=== PATIENT | male | born 1965 | race Caucasian/White ===

== ENCOUNTER 2017-12-28 03:34 | Inpatient (IN) | payer SELFPAY ==
[~2017-12-28] VITALS: Ht 182.9 cm; Wt 82.9 kg
[2017-12-28] VITALS (11 sets, daily range): BP systolic 95–144; BP diastolic 60–79; PULSE 101–128; TEMP 97.9–103.2
[2017-12-28 04:24] LABS: BASO # 0.1 (0.0-0.2); BASO % 0.4 % (0.0-2.0); EOS % 0.1 % (0-4.0); GRAN # 10.3 (1.4-6.5); GRAN % 84.9 % (42.2-75.2); HEMOGLOBIN 12.1 g/dl (13.5-18.0); LYMPH # 0.7 (1.2-3.4); LYMPH % 5.8 % (20.0-51.0); MEAN CELL VOLUME 79 fl (80.0-100.0); MEAN CORPUSCULAR HEMOGLOBIN 28 pg (27.0-31.0); MEAN CORPUSCULAR HGB CONC 35 g/dl (33.0-37.0); MEAN PLATELET VOLUME 10.3 fl (7.4-10.4); MONO % 8.1 % (1.7-9.3); PLATELET COUNT 214 K/mm3 (130-400); RED BLOOD COUNT 4.37 M/mm3 (4.20-5.60); REDCELL DISTRIBUTION WIDTH-CV 13.1 % (11.5-14.5)
[2017-12-28 04:25] LABS: HEMATOCRIT 34.6 % (42.0-52.0)
[2017-12-28 04:31] LABS: ACETONE,SERUM NEGATIVE
[2017-12-28 04:37] LABS: ALANINE AMINOTRANSFERASE 33 U/L (21-72); ALBUMIN 3.1 gm/dL (3.5-5.0); ALKALINE PHOSPHATASE 110 U/L (50-136); ANION GAP 8 mmol/L (7-16); AST,SGOT 18 U/L (15-37); BILIRUBIN,TOTAL 0.6 mg/dL (0.0-1.0); BLOOD UREA NITROGEN 14 mg/dL (9-20); CALCIUM 8.2 mg/dL (8.4-10.2); CARBON DIOXIDE 26 mmol/L (22-30); GLUCOSE 274 mg/dL (74-106); POTASSIUM 4.3 mmol/L (3.4-5.0); SODIUM 121 mmol/L (137-145); TOTAL PROTEIN 6.9 gm/dL (6.4-8.2)
[2017-12-28 04:44] LABS: ERYTHROCYTE SEDIMENTATION RATE 40 mm/hr (0-30)
[2017-12-28 04:46] LABS: CHLORIDE 87 mmol/L (98-107)
[2017-12-28 04:49] LABS: C-REACTIVE PROTEIN 15.4 mg/dL (0.0-0.9)
[2017-12-28 04:49] LABS: COLLECTION METHOD CLEAN CATCH
[2017-12-28 04:51] LABS: HIV 1/2 Antibodies Non-Reactive; HIV-1p24 Antigen Non-Reactive
[2017-12-28 04:55] LABS: PH 6 (5-8); SQUAMOUS EPITHELIAL None Seen /hpf; URINE APPEARANCE Clear; URINE BACTERIA None Seen /hpf; URINE BILIRUBIN Negative (NEGATIVE); URINE BLOOD 1+ (NEGATIVE); URINE COLOR Yellow; URINE GLUCOSE 3+ (NEGATIVE); URINE KETONE Negative (NEGATIVE); URINE LEUKOCYTE ESTERASE Negative (NEGATIVE); URINE NITRATE Negative (NEGATIVE); URINE PROTEIN(semi-quant) Negative (NEGATIVE); URINE RBC 0-2 /hpf
[2017-12-28 05:06] LABS: TRICYCLIC ANTIDEPRESS URINE NEGATIVE
[2017-12-28 18:23] LABS: CALCIUM 7.9 mg/dL (8.4-10.2); CREATININE, serum 0.9 mg/dL (0.66-1.25); MAGNESIUM 1.9 mg/dL (1.6-2.3); POTASSIUM 4.3 mmol/L (3.4-5.0)
[2017-12-29 00:03] VITALS: BP 102/63; PULSE 110
[2017-12-29 04:30] VITALS: BP 106/61; PULSE 102; TEMP 98.5
[2017-12-29 07:26] LABS: BASO % 0.3 % (0.0-2.0); EOS % 0.1 % (0-4.0); GRAN # 7.4 (1.4-6.5); GRAN % 79.8 % (42.2-75.2); HEMOGLOBIN 10.9 g/dl (13.5-18.0); LYMPH # 0.9 (1.2-3.4); LYMPH % 9.9 % (20.0-51.0); MEAN CELL VOLUME 81 fl (80.0-100.0); MEAN CORPUSCULAR HEMOGLOBIN 27 pg (27.0-31.0); MEAN CORPUSCULAR HGB CONC 33 g/dl (33.0-37.0); MEAN PLATELET VOLUME 10.1 fl (7.4-10.4); MONO # 0.8 (0.1-0.6); MONO % 8.7 % (1.7-9.3); PLATELET COUNT 185 K/mm3 (130-400); RED BLOOD COUNT 4.01 M/mm3 (4.20-5.60); REDCELL DISTRIBUTION WIDTH-CV 13.5 % (11.5-14.5)
[2017-12-29 07:28] LABS: HEMATOCRIT 32.6 % (42.0-52.0)
[2017-12-29 07:40] LABS: CALCIUM 7.4 mg/dL (8.4-10.2); CREATININE, serum 0.95 mg/dL (0.66-1.25); POTASSIUM 3.9 mmol/L (3.4-5.0)
[2017-12-29 08:00] VITALS: BP 110/74; PULSE 91; TEMP 98.6
[2017-12-29 11:43] VITALS: BP 104/66; PULSE 97; TEMP 98.5
[2017-12-29 19:57] VITALS: BP 113/65; PULSE 102; TEMP 98.8
[2017-12-30] VITALS (10 sets, daily range): BP systolic 98–118; BP diastolic 61–72; PULSE 75–97; TEMP 98–98.7
[2017-12-31] VITALS (12 sets, daily range): BP systolic 94–119; BP diastolic 53–76; PULSE 80–89; TEMP 97.5–98.8
[2018-01-01] VITALS (13 sets, daily range): BP systolic 100–124; BP diastolic 61–82; PULSE 71–92; TEMP 97.4–98.6
[2018-01-02 02:31] VITALS: BP 110/64; PULSE 80; TEMP 97.6
[2018-01-02 04:08] VITALS: BP 104/59; PULSE 88; TEMP 98.2
[2018-01-02 05:47] VITALS: BP 108/67; PULSE 83; TEMP 98.2
[2018-01-02] MEDS ORDERED: CUBICIN 500MG500 MG IV (08:06)
[2018-01-02 08:35] VITALS: BP 116/66; PULSE 72; TEMP 97.6
[2018-01-02] MEDS ORDERED: GLUCOPHAGE500 MG/TAB PO (08:53)
[2018-01-02 10:08] VITALS: BP 114/81; PULSE 84; TEMP 98.5
[2018-01-02 12:17] VITALS: BP 113/77; PULSE 92; TEMP 98.5
[2018-01-02] MEDS ORDERED: VANCOCIN HCL1 GM IV (13:16)
[2018-01-03] MEDS ORDERED: MULTI VITAMINS1 TAB PO (09:20)
== END 2018-01-02 15:35 | disposition home or self-care (01) | DRG 854 ==
LOC: COL.ER 03:34 → SURG 06:28
PROVIDERS: Emergency Medicine; Internal Medicine; Physician Assistant; Surgery
PROC: 0H99X0Z Drainage of Perineum Skin with Drainage Device, External Approach (ICD-10-PCS; 2017-12-28)
PROC: 0H9AXZZ Drainage of Inguinal Skin, External Approach (ICD-10-PCS; 2017-12-28)
PROC: 0H9HXZZ Drainage of Right Upper Leg Skin, External Approach (ICD-10-PCS; principal; 2017-12-28 19:45)
DX: A41.02 Sepsis due to Methicillin resistant Staphylococcus aureus (principal); L03.115 Cellulitis of right lower limb; L03.314 Cellulitis of groin; K61.1 Rectal abscess; E87.1 Hypo-osmolality and hyponatremia; F15.10 Other stimulant abuse, uncomplicated; E11.65 Type 2 diabetes mellitus with hyperglycemia
CPT/HCPCS: 99222-AI; 99233-AI; A4244; C1751; J0690; J1815; J2060; J2270; J2405; J2543; J2704; J3010; J3370; J7030; J7050; Q9967

== ENCOUNTER 2018-01-03 16:26 | Outpatient (RCR) | payer SELFPAY ==
[~2018-01-03] VITALS: Ht 182.9 cm; Wt 82.0 kg
[2018-01-03 08:00] VITALS: BP 131/99; PULSE 107; TEMP 98.1
[~2018-01-03 16:26] MED LIST: CUBICIN 500MG500 MG IV; GLUCOPHAGE500 MG/TAB PO; MULTI VITAMINS1 TAB PO; VANCOCIN HCL1 GM IV
[2018-01-04 06:58] VITALS: BP 114/78; PULSE 95; TEMP 98.1
[2018-01-04 18:27] VITALS: BP 109/69; PULSE 100; TEMP 98.4
[2018-01-05 07:23] VITALS: BP 118/74; PULSE 99; TEMP 98.1
[2018-01-05 17:31] VITALS: BP 128/70; PULSE 101; TEMP 98.3
[2018-01-06 07:40] VITALS: BP 130/83; PULSE 89; TEMP 98.1
[2018-01-07 08:11] VITALS: BP 125/73; PULSE 73; TEMP 98
[2018-01-08 07:36] VITALS: BP 118/70; PULSE 91; TEMP 98.7
[2018-01-08 18:06] VITALS: BP 118/76; PULSE 100; TEMP 97.9
[2018-01-09 07:26] VITALS: BP 115/86; PULSE 89; TEMP 97.9
[2018-01-09 18:07] VITALS: BP 108/65; PULSE 99; TEMP 97.8
[2018-01-10 07:33] VITALS: BP 121/77; PULSE 98; TEMP 98.3
[2018-01-10 18:09] VITALS: BP 125/77; PULSE 105; TEMP 98.2
[2018-01-11 08:58] VITALS: BP 117/74; PULSE 101; TEMP 97.7
[2018-01-11 17:51] VITALS: BP 130/80; PULSE 102; TEMP 98
[2018-01-12 07:33] VITALS: BP 121/70; PULSE 97; TEMP 97.6
[2018-01-12 18:12] VITALS: BP 120/70; PULSE 70; TEMP 97.4
== END 2018-01-12 19:30 | disposition home health service (06) ==
LOC: COL.ER 16:32 → EUO 16:32
DX: A41.02 Sepsis due to Methicillin resistant Staphylococcus aureus (principal); L02.91 Cutaneous abscess, unspecified; E11.65 Type 2 diabetes mellitus with hyperglycemia; E87.1 Hypo-osmolality and hyponatremia; E87.8 Other disorders of electrolyte and fluid balance, not elsewhere classified; F15.10 Other stimulant abuse, uncomplicated
CPT/HCPCS: J3370; J7040

== ENCOUNTER 2020-09-06 04:37 | Observation (INO) | payer SELFPAY ==
[~2020-09-06] VITALS: Ht 182.9 cm; Wt 79.5 kg
[2020-09-06 05:37] LABS: BASO % 0.5 % (0.0-2.0); EOS # 0.3 (0.0-0.7); EOS % 3.8 % (0-4.0); GRAN # 5.9 (1.4-6.5); GRAN % 70.1 % (42.2-75.2); HEMATOCRIT 45.9 % (42.0-52.0); HEMOGLOBIN 15.2 g/dl (13.5-18.0); LYMPH # 1.6 (1.2-3.4); MEAN CELL VOLUME 84 fl (80.0-100.0); MEAN CORPUSCULAR HEMOGLOBIN 28 pg (27.0-31.0); MEAN CORPUSCULAR HGB CONC 33 g/dl (33.0-37.0); MEAN PLATELET VOLUME 10.8 fl (7.4-10.4); MONO # 0.5 (0.1-0.6); MONO % 6.4 % (1.7-9.3); PLATELET COUNT 252 K/mm3 (130-400); RED BLOOD COUNT 5.44 M/mm3 (4.20-5.60); REDCELL DISTRIBUTION WIDTH-CV 14.3 % (11.5-14.5)
[2020-09-06 05:54] LABS: ALBUMIN 4.2 gm/dL (3.5-5.0); BILIRUBIN,TOTAL 0.6 mg/dL (0.0-1.0); CALCIUM 8.9 mg/dL (8.4-10.2); CREATININE, serum 0.7 (0.66-1.25); POTASSIUM 4.1 mmol/L (3.4-5.0)
[2020-09-06 05:56] LABS: C-REACTIVE PROTEIN 0.5 mg/dL (0.0-0.9)
[2020-09-06 06:00] LABS: ERYTHROCYTE SEDIMENTATION RATE 11 mm/hr (0-30)
--- NOTE | 2020-09-06 12:00 | NUR ---
Patient to room 323 by cart from the ER. A&Ox4. VSS. IV CDI. Denies pain and discomfort. MRSA precautions in place. Nurse oriented patient to location, room and call light. No further needs expressed from the patient. Call light within reach
[2020-09-06 12:05] VITALS: BP 119/78; PULSE 79; TEMP 97.6
--- NOTE | 2020-09-06 13:01 | NUR ---
Vancomycin Initial Dosing Pharmacy Note Ordering provider: Bharti De Leon MD Indication/duration: Bone/joint infection Relevant comorbidities: DM LABS: eCrCl > 100 mL/min Recommendation: Loading dose: 1.5 grams Maintenance dose: 1 gram every 8 hours Trough goal: 15-20 ug/mL Pharmacy will continue to follow.
[2020-09-06 16:40] VITALS: BP 106/70; PULSE 86; TEMP 98.3
--- NOTE | 2020-09-06 17:49 | NUR ---
Patient has been resting in bed since coming to the floor. Denies pain and discomfort. IV CDI. VSS. No further needs expressed from the patient. Call light within reach
[2020-09-06 20:33] VITALS: BP 121/74; PULSE 89; TEMP 97.8
--- NOTE | 2020-09-06 23:46 | NUR ---
2015- PT SETTING UP IN BED WATCHING TV. DENIES PAIN, SOA OR DIZZY. RT FA SL UNLESS VANCO RUNNING. BLOOD SUGAR OF 137, INR. GOOD APPEITE. AWAITING MRI SCHEDULED FOR AM. NEEDS MET.
[2020-09-07 00:25] VITALS: BP 109/68; PULSE 78; TEMP 98
[2020-09-07 04:00] VITALS: BP 111/67; PULSE 66; TEMP 97.9
--- NOTE | 2020-09-07 06:12 | NUR ---
RESTING THROUGH OUT NIGHT WITHOUT INCIDENT. NO PRN NEEDED. NO LAST 4 HRS FOR SCHEDULED MRI. NEEDS MET.
[2020-09-07 06:26] LABS: BASO # 0.1 (0.0-0.2); BASO % 0.8 % (0.0-2.0); EOS # 0.5 (0.0-0.7); EOS % 8.7 % (0-4.0); GRAN # 2.9 (1.4-6.5); GRAN % 47.9 % (42.2-75.2); HEMATOCRIT 37.9 % (42.0-52.0); LYMPH % 32.8 % (20.0-51.0); MEAN CELL VOLUME 85 fl (80.0-100.0); MEAN CORPUSCULAR HEMOGLOBIN 29 pg (27.0-31.0); MEAN CORPUSCULAR HGB CONC 34 g/dl (33.0-37.0); MEAN PLATELET VOLUME 10.9 fl (7.4-10.4); MONO # 0.6 (0.1-0.6); MONO % 9.5 % (1.7-9.3); PLATELET COUNT 199 K/mm3 (130-400); RED BLOOD COUNT 4.45 M/mm3 (4.20-5.60); REDCELL DISTRIBUTION WIDTH-CV 14.3 % (11.5-14.5)
[2020-09-07 06:34] LABS: CALCIUM 8.4 mg/dL (8.4-10.2); CREATININE, serum 0.78 (0.66-1.25); HEMOGLOBIN 12.7 g/dl (13.5-18.0); POTASSIUM 3.7 mmol/L (3.4-5.0)
--- NOTE | 2020-09-07 08:00 | NUR ---
PATIENT IS A&O. VSS. DENIES PAIN. PATIENT REPORTS NUMBNESS AND TINGLING TO BLE FEET FOR 5 YEARS. PATIENT HAS HX OF DM AND PREVIOUS FOOT ULCER THAT REQUIRED ANTIBIOTICS AND TOOK OVER 10 MONTHS TO HEEL, NOTED UNSTAGABLE ULCER THAT IS SCABBED BUT HEALING. BOTTOM OF LEFT FOOT SKIN IS PEELING. WBAT, PATIENT INDEPENDENT IN ROOM. GAIT STEADY. ON IV ABX. ON CONTACT FOR HX OF MRSA. MRI SCHEDULED THIS AM. NPO. NO C/O N/V. RIGHT FORARM IV TO INT. HEAD TO TOE ASSESSMENT COMPLETE. NO OTHER NEEDS. CALL LIGHT IN REACH.
[2020-09-07 09:00] VITALS: BP 118/73; PULSE 70; TEMP 97.4
[2020-09-07 13:32] VITALS: BP 115/77; PULSE 62; TEMP 98.2
--- NOTE | 2020-09-07 16:45 | NUR ---
Chronometer Tester met with patient to discuss discharge planning. Patient lives alone in [place]. Patient reports he used to care for his mother, Sushila (ph#[phone]) but "the rug was pulled out from under him" and his brother placed Sushila in a retirement, [place]. Patient states he is "on trial" for abuse allegations against his mother and is not allowed to speak to her, although he states he still tries. Patient does not have a primary care physician and is agreeable to have an appointment made at [facility] in [place] as long as it's not with Dr. Rojas. Patient is self pay at this time. Pharmacist, Mireille advised SW that patient would have two new medications, Metformin and Glipizide. Patient states he has no money for medications at this time. SW will follow on medication voucher. Patient does not use any DME and is independent with [facility]. Patient does not have DPOA-HC and does not want to set up Advance Directives at this time. Patient states his mom, his legal next of kin can make decisions for him if he can't. Plan is for patient to return home upon discharge. SW will continue to follow.
[2020-09-07 17:51] VITALS: BP 138/69; PULSE 73; TEMP 98.5
[2020-09-07 19:58] VITALS: BP 99/71; PULSE 93; TEMP 98.4
--- NOTE | 2020-09-07 20:48 | NUR ---
2000-PT SETTING UP IN RECLINER FINISHING UP DINNER. GOOD APPETITE. DENIES BM TODAY, HAD ONE YESTURDAY. DENIES SOA, CHEST PAIN OR DIZZY. DENIES PAIN IN LEFT GREAT TOE, CONTINUE TO BE BLACK AND NECROTIC LOOKING. ELEVATED WHEN IN BED. DID NOT GET MRI TODAY WILL BE NPO TONIGHT FOR TEST. IV TO RT FA. VANCO INFUSING PER ORDER. NEEDS MET.
[2020-09-08 00:13] VITALS: BP 111/65; PULSE 81; TEMP 98.4
[2020-09-08 04:15] VITALS: BP 110/71; PULSE 74; TEMP 98
--- NOTE | 2020-09-08 05:36 | NUR ---
PT RESTED ALL NIGHT WITHOUT INCIDENT. NPO FOR MRI. NEEDS MET.
[2020-09-08 07:35] LABS: BASO # 0.1 (0.0-0.2); BASO % 0.8 % (0.0-2.0); EOS # 0.4 (0.0-0.7); EOS % 6.8 % (0-4.0); GRAN # 3.2 (1.4-6.5); GRAN % 51.1 % (42.2-75.2); HEMATOCRIT 38.1 % (42.0-52.0); HEMOGLOBIN 12.3 g/dl (13.5-18.0); LYMPH # 2.1 (1.2-3.4); LYMPH % 34.2 % (20.0-51.0); MEAN CELL VOLUME 87 fl (80.0-100.0); MEAN CORPUSCULAR HEMOGLOBIN 28 pg (27.0-31.0); MEAN CORPUSCULAR HGB CONC 32 g/dl (33.0-37.0); MEAN PLATELET VOLUME 11.1 fl (7.4-10.4); MONO # 0.4 (0.1-0.6); MONO % 6.9 % (1.7-9.3); PLATELET COUNT 201 K/mm3 (130-400); RED BLOOD COUNT 4.39 M/mm3 (4.20-5.60); REDCELL DISTRIBUTION WIDTH-CV 14.3 % (11.5-14.5)
[2020-09-08 07:43] LABS: CALCIUM 8.7 mg/dL (8.4-10.2); CREATININE, serum 0.73 (0.66-1.25); POTASSIUM 3.7 mmol/L (3.4-5.0)
--- NOTE | 2020-09-08 08:00 | NUR ---
PATIENT IS A&O. VSS. DENIES PAIN. PATIENT REPORTS HE HAS HAD NUMBNESS TO HIS BLE FOR APPROX 5 YEARS. PATIENT HAS A SMALL, DIME SIZED, HEALING/SCABBED ULCER TO BOTTOM OF RIGHT FOOT. RIGHT GREAT TOE HAS DARK ECCYMOSIS. PATIENT SCHEDULED MORE MRI OF RLE TODAY. NPO. AM BS WAS 164, NO SSI REQUIRED. HEAD TO TOE ASSESSMENT COMPLETE. INDEPENDENT IN ROOM. CALL LIGHT IN REACH.
[2020-09-08 08:02] VITALS: BP 122/71; PULSE 80; TEMP 98.2
--- NOTE | 2020-09-08 09:45 | NUR ---
MRI ON THEIR WAY UP TO GET PATIENT. WC IN ROOM AND PATIENT READY.
--- NOTE | 2020-09-08 10:58 | NUR ---
PATIENT BACK IN ROOM FROM MRI.
[2020-09-08] MEDS ORDERED: GLUCOTROL 5M5 MG/TAB PO (12:18)
[2020-09-08] MEDS ORDERED: GLUCOPHAGE500 MG/TAB PO (12:19)
[2020-09-08] MEDS ORDERED: DOXYCYCLINE 10100 MG PO (12:20)
[2020-09-08 12:25] VITALS: BP 119/87; PULSE 86; TEMP 97.7
--- NOTE | 2020-09-08 15:05 | NUR ---
Chief Operator Reformer met with patient as he is discharging today. Patient cannot afford his medications so SW completed a medication voucher for patient totaling $24.78. JOCELYN faxed voucher to [facility] and spoke to Maria Teresa who advised they can deliver meds this afternoon as patient is unsure what time his ride will be here. JOCELYN scheduled appointment at [facility] in [place] for 09/15/20 at 1420 and provided date/time to embossing unit operator to include with discharge orders. JOCELYN obtained signatures on Medicaid application and releases and returned to Citlali, Financial Counselor. JOCELYN collaborated the above information to [employer].
[2020-09-08 16:25] VITALS: BP 135/72; PULSE 96; TEMP 98.1
--- NOTE | 2020-09-08 21:07 | NUR ---
Patient called and said his ride was here. SALVAGE ENGINEERING TECHNICIAN took patient down to ER door via wheelchair with all his belongings. PAtient had no questions or concerns.
== END 2020-09-08 20:45 | disposition home or self-care (01) ==
LOC: COL.ER 04:37 → SURG 06:41
PROVIDERS: Emergency Medicine; ADMIT Student in an Organized Health Care Education/Training Program
DX: S91.102A Unspecified open wound of left great toe without damage to nail, initial encounter (principal); L03.032 Cellulitis of left toe; E11.9 Type 2 diabetes mellitus without complications; Z79.84 Long term (current) use of oral hypoglycemic drugs; Z87.891 Personal history of nicotine dependence; Z88.8 Allergy status to other drugs, medicaments and biological substances; Z79.899 Other long term (current) drug therapy
CPT/HCPCS: 99231-AI; 99239; G0378; J1650; J1815; J2543; J3370; J7030; J7050